=== PATIENT | male | born 1935 | race Caucasian/White ===

== ENCOUNTER → 2024-09-22 12:12 | Outpatient (REF) | payer OTHER, SELFPAY ==
[2024-09-22 13:40] LABS: Potassium 5.6 mmol/L (3.5-5.1)
== END ==
LOC: REG 12:12
PROVIDERS: ATTENDING PHYSICIAN Physician Assistant
DX: E87.5 Hyperkalemia (principal)
CPT/HCPCS: 36415; 84132